=== PATIENT | male | born 1975 | race African-American/Black ===

== ENCOUNTER 2020-10-12 11:53 | Emergency (ER) | payer MEDICAID, OTHER ==
[~2020-10-12] VITALS: Ht 175.3 cm; Wt 76.2 kg
--- NOTE | 2020-10-12 12:24 | NUR ---
pending disposition NAD RA
[2020-10-12] MEDS ORDERED: BENZ-13 PO (12:25)
[2020-10-12 12:37] VITALS: BP 106/72
--- NOTE | 2020-10-12 12:37 | NUR ---
Patient discharged to home in stable condition. Written and verbal after care instructions given. Patient verbalizes understanding of instructions. Stressed follow up or return to ER for worsening s/s.
== END 2020-10-12 12:50 | disposition home or self-care (01) ==
LOC: ER 11:53
DX: J06.9 Acute upper respiratory infection, unspecified (principal); Z88.2 Allergy status to sulfonamides
CPT/HCPCS: 71045; A4663

== ENCOUNTER 2022-09-25 22:55 | Emergency (ER) | payer MEDICAID ==
[~2022-09-25] VITALS: Ht 175.3 cm; Wt 67.1 kg
[~2022-09-25 22:55] MED LIST: ACET325T53 PO; BENZ-13 PO
[2022-09-25] MEDS ORDERED: TRAMADOL HCL 50 MG TABLET ONE (23:19)
[2022-09-25] MEDS ORDERED: TRAM50TA2 PO (23:29)
[2022-09-25] MEDS ORDERED: CLOT15CR27 TP (23:29)
[2022-09-25] MEDS ORDERED: TRAMADOL HCL 50 MG TABLET PO ONE (23:30)
[2022-09-25 23:42] VITALS: BP 115/75; TEMP 98.4; O2SAT 98
== END 2022-09-25 23:42 | disposition home or self-care (01) ==
LOC: ER 22:55
DX: M79.671 Pain in right foot (principal); F28 Other psychotic disorder not due to a substance or known physiological condition; F17.210 Nicotine dependence, cigarettes, uncomplicated; Z88.2 Allergy status to sulfonamides; Z88.8 Allergy status to other drugs, medicaments and biological substances; Z79.899 Other long term (current) drug therapy
CPT/HCPCS: A4663

== ENCOUNTER 2023-02-11 15:10 | Emergency (ER) | payer MEDICAID ==
[~2023-02-11] VITALS: Ht 177.8 cm; Wt 90.3 kg
[~2023-02-11 15:10] MED LIST changes: +CLOT15CR27 TP; +TRAM50TA2 PO
[2023-02-11 15:19] VITALS: O2SAT 97
[2023-02-11] MEDS ORDERED: BENZ150C4 PO (15:31)
[2023-02-11] MEDS ORDERED: RISP1TAB7 PO (15:31)
[2023-02-11] MEDS ORDERED: DIVA500T2 PO (15:31)
[2023-02-11] MEDS ORDERED: OLAN5TAB3 PO (15:31)
== END 2023-02-11 15:43 | disposition home or self-care (01) ==
LOC: ER 15:14
DX: F29 Unspecified psychosis not due to a substance or known physiological condition (principal); F41.9 Anxiety disorder, unspecified; F31.9 Bipolar disorder, unspecified; F17.200 Nicotine dependence, unspecified, uncomplicated; Z79.899 Other long term (current) drug therapy; Z88.2 Allergy status to sulfonamides
CPT/HCPCS: A4606; A4663

== ENCOUNTER 2024-07-04 01:04 | Emergency (ER) | payer MEDICARE, OTHER ==
[~2024-07-04] VITALS: Ht 167.6 cm; Wt 90.7 kg
[~2024-07-04 01:04] MED LIST changes: +BENZ150C4 PO; +DIVA500T2 PO; +OLAN5TAB3 PO; +RISP1TAB7 PO
[2024-07-04 01:43] LABS: *AMPHETAMINE, URINE NEGATIVE (NEGATIVE); *BARBITURATE, URINE NEGATIVE (NEGATIVE); *BENZODIAZEPINE, URINE NEGATIVE (NEGATIVE); *CANNABINOID, URINE NEGATIVE (NEGATIVE); *COCCAINE, URINE NEGATIVE (NEGATIVE); *OPIATE, URINE NEGATIVE (NEGATIVE); *PHENCYCLIDINE SCREEN,URINE NEGATIVE (NEGATIVE); FENTANYL, URINE NEGATIVE (NEGATIVE)
[2024-07-04 01:43] LABS: BASOPHILS # (AUTO) 0.1 K/UL (0.0-0.2); BASOPHILS % (AUTO) 0.6 % (0.0-2.0); HEMOGLOBIN 15.1 g/dL (12.5-16.3); LYMPHOCYTES # (AUTO) 1.5 K/uL (0.8-4.8); LYMPHOCYTES % (AUTO) 10.7 % (20.5-51.5); MEAN CORPUSCULAR HEMOGLOBIN 30.5 uug (23.8-33.4); MEAN CORPUSCULAR HGB CONC 34 g/dL (32.5-36.3); MONOCYTES # (AUTO) 0.9 K/uL (0.1-1.30); MONOCYTES % (AUTO) 6.2 % (0.0-11.0); NEUTROPHILS # (AUTO) 11.8 K/uL (1.8-8.9); NEUTROPHILS % (AUTO) 82.5 % (38.5-71.5); PLATELET COUNT (AUTO) 250 K/uL (152-348); RED BLOOD CELL COUNT(AUTO) 4.94 MIL/uL (4.06-5.63); RED CELL DISTRIBUTION WIDTH 14.2 % (12.1-16.2); WHITE BLOOD COUNT (AUTO) 14.3 K/uL (3.6-10.2)
[2024-07-04 01:44] LABS: DIFFERENTIAL COMMENT 1
[2024-07-04 01:48] LABS: CALCIUM 8.4 mg/dL (8.5-10.1); POTASSIUM 4.2 mmol/L (3.5-5.1)
[2024-07-04 01:54] LABS: ALBUMIN 3.7 g/dL (3.4-5.0); BILIRUBIN,DIRECT 0.2 mg/dL (0.0-0.2); BILIRUBIN,TOTAL 0.4 mg/dL (0.2-1.0); TOTAL PROTEIN, SERUM 7.6 g/dL (6.4-8.2)
[2024-07-04 02:00] LABS: ETHANOL < 3 MG/DL (0-10)
[2024-07-04 06:18] VITALS: BP 110/70; TEMP 98.3; O2SAT 97
== END 2024-07-04 06:20 ==
LOC: ER 01:08
DX: R44.3 Hallucinations, unspecified (principal); R05.9 Cough, unspecified; F17.210 Nicotine dependence, cigarettes, uncomplicated; F31.9 Bipolar disorder, unspecified; J02.9 Acute pharyngitis, unspecified; F41.9 Anxiety disorder, unspecified; Z87.09 Personal history of other diseases of the respiratory system; Z79.899 Other long term (current) drug therapy; Z88.2 Allergy status to sulfonamides; Z20.822 Contact with and (suspected) exposure to COVID-19
CPT/HCPCS: 36415; 85025; A4606; A4663; G0480